=== PATIENT | female | born 1980 | race Two or more races ===

== ENCOUNTER → 2019-03-19 | Outpatient (CLI) | payer OTHER ==
[~2019-03-19] MED LIST: ALLEGRA ALLERG180 MG PO; GILTUSS TR TAB1 EACH PO; ZITHROMAX500 MG PO; ZYRTEC10 MG PO
== END | disposition home or self-care (01) ==
LOC: PRENATAL 13:30
DX: O28.1 Abnormal biochemical finding on antenatal screening of mother (principal); O09.522 Supervision of elderly multigravida, second trimester; O98.212 Gonorrhea complicating pregnancy, second trimester

== ENCOUNTER → 2019-07-13 | Outpatient (CLI) | payer OTHER | END | disposition home or self-care (01) | LOC: PRENATAL 14:00 | DX: O26.843 Uterine size-date discrepancy, third trimester (principal); O09.523 Supervision of elderly multigravida, third trimester; O99.89 Other specified diseases and conditions complicating pregnancy, childbirth and the puerperium; O35.0XX1 Maternal care for (suspected) central nervous system malformation in fetus, fetus 1 ==

== ENCOUNTER 2019-08-05 16:02 | Inpatient (IN) | payer OTHER ==
[~2019-08-05] VITALS: Ht 157.5 cm; Wt 73.9 kg
[2019-08-06] MEDS ORDERED: VALTREX1000 MG PO (07:56)
[2019-08-06] MEDS ORDERED: PRENATAL CAPLE1 EAC1 PO (07:56)
[2019-08-09] MEDS ORDERED: CODE1TAB37 PO (09:49)
[2019-08-09] MEDS ORDERED: REGLAN PO (09:50)
[2019-08-09] MEDS ORDERED: MOTRIN PO (09:51)
== END 2019-08-09 11:33 | DRG 788 ==
LOC: LDR 16:02 → OB/GYN 08-06 20:24
PROVIDERS: ADMIT Obstetrics & Gynecology
PROC: 4A1HXCZ Monitoring of Products of Conception, Cardiac Rate, External Approach (ICD-10-PCS; 2019-08-06)
PROC: 4A033R1 Measurement of Arterial Saturation, Peripheral, Percutaneous Approach (ICD-10-PCS; 2019-08-06)
PROC: 10D00Z1 Extraction of Products of Conception, Low, Open Approach (ICD-10-PCS; principal; 2019-08-06 19:00)
DX: O62.1 Secondary uterine inertia (principal); Z3A.40 40 weeks gestation of pregnancy; Z37.0 Single live birth